=== PATIENT | female | born 1980 | race Caucasian/White ===

== ENCOUNTER 2017-01-25 12:25 | Inpatient (IN) | payer OTHER ==
[~2017-01-25] VITALS: Ht 165.1 cm; Wt 46.3 kg
--- NOTE | 2017-01-25 12:30 | NUR ---
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 PER FAMILY PT WAS SPEAKING AND BEHAVING NORMALLY AND THEN BEGAN TO C/O HEADACHE AND WAS THEN UNABLE TO SPEAK. PT PRESENTS TO ER APHASIC AND WITH FACIAL DROOP TO R SIDE AND FACIAL RAISED TO L SIDE, BUE WEAKNESS NOTED BUT MORE PROMINENT TO R SIDE AND BLE WEAKNESS NOTED WITH MORE TO L SIDE. PT APPEARS TO BE ATTEMPTING TO NOD YES AND NO TO QUESTIONS. PT FAMILY REPORTS PT HAS BEGUN TAKING NEW MEDICATION.
--- NOTE | 2017-01-25 12:35 | NUR ---
DR CARRANZA CALLED TO PT ROOM TO DETERMINE IF CODE BRAIN IS NEEDED FOR PT FOR STROKE LIKE SYMPTOMS VS DYSTONIC REACTION
--- NOTE | 2017-01-25 12:44 | NUR ---
PT EXAMINED BY DR. VALENCIA. PT TRANSPORTED BY MICHELLE TO CT FOR CODE BRAIN.
--- NOTE | 2017-01-25 12:55 | NUR ---
BENADRYL 25MG IV ADMINISTERED PER DR CARRANZA VERBAL ORDER
--- NOTE | 2017-01-25 13:14 | NUR ---
LAB AT BEDSIDE FOR BLOOD DRAW.
--- NOTE | 2017-01-25 13:19 | NUR ---
X-RAY AT BEDSIDE.
[2017-01-25 13:40] LABS: microscopic required? NO
[2017-01-25] MEDS ORDERED: TRAZODONE50 M1 PO (13:45)
[2017-01-25 13:46] LABS: BASOPHIL % 1.1 % (0-2)
[2017-01-25] MEDS ORDERED: IBUPROFEN400 MG PO (13:46)
[2017-01-25 13:47] LABS: PLATELET COUNT 433 x10^3mcL (130-400)
[2017-01-25] MEDS ORDERED: NAPROXEN375 MG PO (13:47)
[2017-01-25] MEDS ORDERED: FLA500 PO (13:48)
[2017-01-25] MEDS ORDERED: LEXAPRO5 M1 PO (13:48)
[2017-01-25 13:49] LABS: CALCIUM 8.4 mg/dL (8.5-10.1); CARBON DIOXIDE 30.7 mmol/L (21-32); CHLORIDE SERUM 106 mmol/L (98-107); CREATININE SERUM 0.5 mg/dL (0.6-1.0); GFR1 > 60 mL/min; GLUCOSE SERUM 82 mg/dL (74-106); POTASSIUM SERUM 3.8 mmol/L (3.5-5.1); SODIUM SERUM 142 mmol/L (136-145)
--- NOTE | 2017-01-25 13:49 | NUR ---
MED REC COMPLETED WITH PT MEDICATION BOTTLES
[2017-01-25 13:53] LABS: ALKALINE PHOSPHATASE 48 U/L (46-116); ALT/SGPT 23 U/L (14-59); AST/SGOT 21 U/L (15-37); BILIRUBIN TOTAL 0.23 mg/dL (0.20-1.00); TOTAL PROTEIN, SERUM 6.6 g/dL (6.4-8.2)
[2017-01-25 13:57] LABS: UA SPECIFIC GRAVITY <1.005 (1.005-1.035)
[2017-01-25 13:58] LABS: urine erythrocyte NEGATIVE (NEGATIVE)
--- NOTE | 2017-01-25 14:02 | NUR ---
PT IN STABLE CONDITION. RESP EVEN AND UNLABORED, RA. VS STABLE. PT NOTED TO HAVE CONTINUED FACIAL DROOP AND RAISE AND NOTED TO BE MAKING A CHEWING MOTION BUT NOT EATING ANYTHING. FAMILY AT BEDSIDE
[2017-01-25 14:07] LABS: ALBUMIN 3.2 g/dL (3.4-5.0)
--- NOTE | 2017-01-25 14:24 | NUR ---
DR POE AT BEDSIDE SPEAKING TO PT
[2017-01-25 14:37] LABS: AMPHETAMINE QUAL UR NONE DETECTED (NEG <=1000)
--- NOTE | 2017-01-25 14:39 | NUR ---
DR CARRANZA MADE AWARE DR POE WILL PROVIDE PT WITH KLONOPIN AFTER PT TRANSFERS TO [facility], DR CARRANZA GIVES VERBAL OK TO HOLD RECENTLY ORDERED ATIVAN
--- NOTE | 2017-01-25 14:50 | NUR ---
REPORT GIVEN TO BRIGIDA CABRERA IN [facility] FOR CONTINUITY OF CARE
--- NOTE | 2017-01-25 14:59 | NUR ---
RESIDENT DR MELO AT BEDSIDE SPEAKING TO PT. ALSO GIVES VERBAL ORDER FOR ADMISSION TO [facility]
--- NOTE | 2017-01-25 15:20 | NUR ---
RECEIVED PT FROM ED VIA [employer], CAME IN DUE TO NUMBNESS, WEAKNESS, UNABLE TO SPEAK AND INVOLUNTARY MOVEMENTS OF HER MOUTH. PT IS AWAKE, ABLE TO ANSWER TO YES OR NO QUESTIONS AND WRITE ON A PIECE OF PAPER. C/O HEADACHE. W/ RIGHT SIDED WEAKNESS, NO FACIAL DROOP NOTED. NOTED PT HAS INVOLUNTARY MOVEMENTS ON HER MOUTH. C/O 10/10 GENERALIZED PAIN. NSR ON THE MONITOR. NO SOB NOTED. SIDE RAILS UPX2. CALL LIGHT ON REACH. PRIMARY NURSE LEVI AT BEDSIDE FOR CONTINUITY OF CARE
[2017-01-25 15:30] VITALS: BP 115/75
[2017-01-25 15:34] VITALS: Ht 165.1 cm; Wt 46.3 kg
[2017-01-25 15:51] LABS: MAGNESIUM 2.1 mg/dL (1.8-2.4); PHOSPHOROUS 4.1 mg/dL (2.5-4.9)
[2017-01-25 15:53] LABS: CHOLESTEROL/HDL RATIO 2.3
[2017-01-25 16:02] LABS: FREE T4 0.93 ng/dL (0.76-1.46); FREE THYROXINE INDEX 2.3 ug/dL (1.4-4.5); T3 TOTAL 0.96 ng/mL; T4(THYROXINE) 6.7 ug/dL (4.7-13.3)
--- NOTE | 2017-01-25 16:36 | NUR ---
RESUMED CARE OF THIS PT. PT IN NO ACUTE RESP. DISTRESS. ABLE TO WRITE NEEDS ON A PAPER. REPORTED RT SIDED HAEADACHE AT THIS TIME. WILL MEDICATE INDICATED. VS WNL. IVF INITIATED AND INFUSING WELL, SITE CLEAR. CALL LIGHT WITHIN REACH. WILL CONT. WITH PLAN OF CARE.
[2017-01-25 16:50] VITALS: BP 107/60
--- NOTE | 2017-01-25 18:42 | NUR ---
PT IS MORE AWAKE AND VERBALLY RESPONSIVE, STATED " IM HUNGRY". NO RESP. DISTRESS NOTED. NO C/O PAIN AT THIS TIME. IVF INFUSING WELL AND SITE CLEAR. CALL LIGHT WITHIN REACH. WILL BE ENDORSED TO INCOMING SHIFT.
--- NOTE | 2017-01-25 19:00 | NUR ---
AOX4. TELE # 13, NSR. SPEECH IS CLEAR. STRENGTH IS EQUAL BILATERAL. LUNGS CLEAR AND UNLABORED ON RA. RADIAL AND PEDAL PULSES PALPABLE, NO EDEMA. SKIN INTACT. DENIES PAIN. NS @ 100 ML/HR INFUSING TO RIGHT AC, NO REDNESS OR SWELLING. BED IN LOW POSITION, CALL LIGHT IN REACH. INSTRUCTED TO CALL FOR ASSISTANCE.
--- NOTE | 2017-01-25 20:05 | NUR ---
BP: 87/53, MAP: 60 DR. SALOMON NOTIFIED, NO ORDERS GIVEN.
--- NOTE | 2017-01-25 20:12 | NUR ---
RECHECK BY NURSE: BP: 97/52, MAP: 67
[2017-01-25 21:45] VITALS: BP 97/52
--- NOTE | 2017-01-26 01:25 | NUR ---
RESTING WITH EYES CLOSED, AWAKENS EASILY TO VERBAL STIMULI. BREATHING EVEN AND UNLABORED. NO ACUTE DISTRESS NOTED. WILL CONTINUE TO MONITOR.
--- NOTE | 2017-01-26 06:25 | NUR ---
NO ACUTE CHANGES DURING SHIFT. WILL ENDORSE TO ONCOMING RN.
[2017-01-26 06:30] VITALS: BP 90/62
[2017-01-26 06:40] LABS: PLATELET COUNT 391 x10^3mcL (130-400)
[2017-01-26 06:44] LABS: BASOPHIL % 2.4 % (0-2)
[2017-01-26 06:46] LABS: CALCIUM 7.7 mg/dL (8.5-10.1); CARBON DIOXIDE 29.9 mmol/L (21-32); CHLORIDE SERUM 107 mmol/L (98-107); CREATININE SERUM 0.6 mg/dL (0.6-1.0); GFR1 > 60 mL/min; GLUCOSE SERUM 103 mg/dL (74-106); PHOSPHOROUS 3.2 mg/dL (2.5-4.9); POTASSIUM SERUM 3.3 mmol/L (3.5-5.1); SODIUM SERUM 140 mmol/L (136-145)
--- NOTE | 2017-01-26 07:22 | NUR ---
PT RECEIVED DURING CHANGE OF SHIFT, ASLEEP BUT AROUSABLE, TELE 13, NSR, PULSES PRESENT, LUNGS CTA ON RA, BREATHING EVEN AND UNLABORED, BOWEL SOUNDS ACTIVE, ABLE TO VOID, RIGHT SIDED WEAKNESS AND UNSTEADY GAIT REPORTED, K-PAD, SKIN WARM DRY INTACT, NO INDICATION OF PAIN, IV TO RAC INFUSING NS AT 120ML/HR, IV WNL, CALL LIGHT WITHIN REACH, WILL CONTINUE TO MONITOR.
--- NOTE | 2017-01-26 07:57 | NUR ---
DR. POE AND RESIDENTS MAKING ROUNDS, PLAN OF CARE DISCUSSED, CONDITION CAUSED EXPLAINED BY DR. POE AND NEED TO OBSERVE PT UNTIL TOMORROW.
--- NOTE | 2017-01-26 08:27 | NUR ---
PT DENIES SOB, STATES PAIN IS TOLERABLE, STATES SHE FEELS "TIGHTNESS" IN RIGHT JAW AND RIGHT ARM, IV SALINE LOCKED PER DR. POE, PT GIVEN TOWELS AND WASCLOTHS TO SHOWER WITH, CALL LIGHT WITHIN REACH, WILL CONTINUE TO MONITOR.
--- NOTE | 2017-01-26 10:16 | NUR ---
PT DENIES SOB, STATES MEDICATION INEFFECTIVE, FAMILY AT BEDSIDE, CALL LIGHT WTIHIN REACH, WILL CONTINUE TO MONITOR.
--- NOTE | 2017-01-26 10:36 | NUR ---
Initial Nutrition Assessment Dx: Tardive Dyskinesia PMHx: Bipolar disorder, methamphetamine abuse, alcohol abuse, tobacco abuse disorder PSHx: Hernia repair (abd) Labs: K 3.3 L, H/H 7.1/22 L; (01/25) ALB 3.2 L, A1C 5.5 Meds: Ativan, Colace, NS IV, zofran Current Diet Order: Full Liquid, Boost Vanilla PO Intakes: None recorded yet due to diet just advanced Ht: 65", 5' 5". Wt: 102 lb, 46 kg. BMI: 17 kg/m2 (Underweight) IBW: 125 lb, 57 kg. %IBW: 81%. UBW: 108 lb, 49 kg (01/22/17); Pt reported unable to recall weight 6 months ago due to being on drugs Age: 37 Y/O F Food Allergies: None Skin: Intact. Bebo 19. Edema: None GI: Active bowel sounds. Last BM 01/25. Pt found with disorder of ANS with tardive dyskinesis, r/o CVA, pending Swallow Evaluation per Speech Therapist per doctor's notes. Noted WIRE STITCHER evaluation was cancelled later at 0927. Pt was seen resting in bed, family at bedside during RD visit. Pt seen munching on ice chips, stated that she is chewing/swallowing fine at this time, just having a headache, and starving, wants to eat. Spoke with RN, stated that doctor found no stroke/CVA, cancelled swallow evaluation, admitted due to rejection of new medication with L sided weakness, but doing better today, diet was just advanced to Full Liquid with Boost oral supplement. Problem with: N: None. V: None. D: None. C: None. Problems with: Chewing: None. Swallowing: None. Recent Weight Change: -6 lb; % Weight Change: 5.5% weight loss within 4 days - Likely fluid shifts Vitamin/Supplement use: None Diet at Home: Regular; Pt reports good PO intakes prior to admission, eats a lot Physical Activity: Walks Education: RD educated pt on diet progression, encouraged adequate PO intakes, and to eat slowly when diet advances. Pt and family verbalizes understanding. Estimated Nutritional Needs Based CBW 102 lb, 46 kg. Energy: 6282-3537 kcal/day (30-35 kcal/kg for Maintenance, Gradual Wt Gain) Protein: 46-55 gm/day (1-1.2 gm/kg for Maintenance, Gradual Wt Gain) Fluids: 1380 ml/day (30 ml/kg for Maintenance) or per doctor Nutrition Diagnosis Underweight related to medications, drug abuse per pt as evidenced by 81% of IBW, BMI 17 kg/m2 Intervention 1. Continue Full Liquid diet per doctor. 2. Recommend Boost Plus TID (1080 kcal, 42 gm protein) to aid in weight maintenance and PO intakes. 3. Consider advance as tolerated to Mechanical Soft, Chopped diet, Boost Plus TID if/when medically appropriate. 4. Recommend Theragran daily. Monitor/Evaluate Goal: PO intakes to meet >75% of estimated needs with tolerance; WIRE STITCHER recommendations Monitor: PO intakes, tolerance to diet, labs, skin integrity, GI function, weights F/U in 3-5 days as MODERATE risk (01/29-01/31)
--- NOTE | 2017-01-26 11:13 | NUR ---
PT C/O PAIN 10/31, WILL MEDICATE PER EMAR, DENIES SOB, BREAKFAST TRAY AT BEDSIDE, CALL LIGHT WITHIN REACH, WILL CONTINUE TO MONITOR.
--- NOTE | 2017-01-26 11:52 | NUR ---
SAMEER GIVEN IM PER DR. CABELLO.
--- NOTE | 2017-01-26 12:07 | NUR ---
ECHO IN PROGRESS, FAMILY STATES MEDICATION EFFECTIVE AND PT STOPPED "MAKING CLICKING NOISES AND MOVING NECK", NO INDICATION OF PAIN, BREATHING EVEN AND UNLABORED, CALL LIGHT WITHIN REACH, WILL CONTINUE TO MONITOR.
--- NOTE | 2017-01-26 13:11 | NUR ---
PT ASLEEP BUT AROUSABLE, NO INDICATION OF PAIN, BREATHING EVEN AND UNLABORED, CALL LIGHT WITHIN REACH, WILL CONTINUE TO MONITOR.
[2017-01-26 13:50] VITALS: BP 90/48
--- NOTE | 2017-01-26 14:07 | NUR ---
PT ASLEEP BUT AROUSABLE, DENIES SOB, STATES PAIN TOLERABLE, IV POTASSIUM EXPLAINED, IV POTASSIUM INFUSING, CALL LIGHT WITHIN REACH, WILL CONTINUE TO MONITOR.
--- NOTE | 2017-01-26 15:15 | NUR ---
PT ASLEEP BUT AROUSABLE, NO INDICATION OF PAIN, BREATHING EVEN AND UNLABORED, DR. CABELLO AT BEDSIDE SPEAKING TO FAMILY AND ADDRESSING CONCERNS, FAMILY AT BEDSIDE, CALL LIGHT WITHIN REACH, WILL CONTINUE TO MONITOR.
--- NOTE | 2017-01-26 16:42 | NUR ---
PT DENIES SOB, ASSISTED TO RESTROOM BY RN AND ORTHOPAEDIC GENERAL, BP LOW, STATES SHE FEELS LIGHT HEADED, PT STATES VISION IS "BLURRY", SYMPTOMS REPORTED TO DR. CABELLO, INSTRUCTED TO RETAKE BP AFTER PT FINISHED USING RESTROOM, CALL LIGHT WITHIN REACH, FAMILY AT BEDSIDE, WILL CONTINUE TO MONITOR.
[2017-01-26 16:53] VITALS: BP 81/42
--- NOTE | 2017-01-26 17:13 | NUR ---
DR. CABELLO NOTIFIED OF BP AFTER RESTROOM USE, DR. CABELLO STATED POSSIBLY DC'ING FRED, CALL LIGHT WITHIN REACH, FAMILY AT BEDSIDE, WILL CONTINUE TO MONITOR.
--- NOTE | 2017-01-26 18:17 | NUR ---
PT DENIES SOB, PT STATES VISION IS IMPROVING, DAUGHTER AT BEDSIDE, CALL LIGHT WITHIN REACH, WILL ENDORSE PT TO NEXT SHIFT.
--- NOTE | 2017-01-26 19:51 | NUR ---
PT C/O TIGHTNESS OF THE LEFT SIDE AND UNABLE TO TALK WHISPERING ONLY TO HER FAMILY , K-PAD TO LEFT OF HER FACE NOTED, WILL MEDICATE PT WITH CONGENTING ORDERED IM .
[2017-01-26 20:52] VITALS: BP 90/43
--- NOTE | 2017-01-27 00:18 | NUR ---
PT'S IN BED WITH EYES CLOSED , TELE NSR PIV INTACT INFUSING WELL , WILL CON'T TO MONITOR AND ASSIST PT WITH CARE .
[2017-01-27 06:04] VITALS: BP 86/51
--- NOTE | 2017-01-27 06:21 | NUR ---
PT C/O SEVERE RIGHT SHOULDER PAIN /, TORADOL GIVEN IVP ORDERED , PIV INTACT INFUSING WELL , BP 187/74 MAP 62, PT'S ASYMPTOMATIC AT THE MOMENT , DR CABELLO IN THE ROOM AWARE OF LOW BP .
[2017-01-27 07:06] LABS: BASOPHIL % 0.6 % (0-2); PLATELET COUNT 356 x10^3mcL (130-400); RED CELL DISTRIBUTION WIDTH 14.3 % (11.5-14.5)
[2017-01-27 07:20] LABS: CALCIUM 8.1 mg/dL (8.5-10.1); CARBON DIOXIDE 28.7 mmol/L (21-32); CHLORIDE SERUM 105 mmol/L (98-107); CREATININE SERUM 0.6 mg/dL (0.6-1.0); GFR1 > 60 mL/min; GLUCOSE SERUM 85 mg/dL (74-106); MAGNESIUM 1.9 mg/dL (1.8-2.4); PHOSPHOROUS 4.7 mg/dL (2.5-4.9); SODIUM SERUM 138 mmol/L (136-145)
--- NOTE | 2017-01-27 07:50 | NUR ---
RC'D PT RESTING IN BED WIHT NO APPARENT SIGNS OF DISTRESS. A/A/O/X4, SPEECH CLEAR AND APPROPRIATE. ON TELE 13 WITH NSR. DENIES CHEST PAIN/PRESSURE. PALP PULSES, NO EDEMA NOTED. RESPIRATIONS EQUAL AND UNLABORED BILAT. LUNGS CLEAR TO AUSCULTATION. ON RA WITH 96% SAT. DENIES SOB. ABDOMEN SOFT AND NONTENDER. ACTIVE BS. DENIES N/V. VOIDS FREELY, DENIES BURNING. GENERALIZED WEAKNESS, SLOW GAIT NOTED WITH PARTIAL ASSISTANCE. SKIN W/D/I. DENIES PAIN AT THIS TIME. IV RUNNING NS AT 120ML/HR, WNL. PT IS CALM AND COOPERATIVE. BED IN LOW POSITION. EDUCATED ON USING CALL LIGHT WHEN NEEDING ASSISTANCE OUT OF BED. CALL LIGHT IN REACH. WILL CONTINUE TO MONITOR.
[2017-01-27 08:36] VITALS: BP 84/46
[2017-01-27] MEDS ORDERED: BEN50 PO (11:38)
[2017-01-27] MEDS ORDERED: KLO0.5 PO (11:39)
[2017-01-27] MEDS ORDERED: COG1 PO (11:40)
[2017-01-27 12:39] VITALS: BP 77/41
--- NOTE | 2017-01-27 13:50 | NUR ---
RECHECKED PT'S BP AFTER 500 ML BOLUS. BP 86/44 (56), HR 85. DR. CABELLO NOTIFIED VIA [place] AND MADE AWARE. AWAITING NEW ORDERS. WILL CONTINUE TO MONITOR.
--- NOTE | 2017-01-27 14:44 | NUR ---
PHYSICAL THERAPY DAILY NOTES CO-SIGN All documentation done by the Peanut Farmer for 01/27/17 has been reviewed. I agree with the documentation. I CONCUR W/MAMMAL KEEPER NOTE; TO MONITOR VS DURING TX, CONT W/CURRENT TX PLAN Reviewed/Co-Signed by: Anan Lynch V PT Documentation Done by: DERRELL WALL MAMMAL KEEPER
--- NOTE | 2017-01-27 15:25 | NUR ---
PT COMPLAINING OF 8/10 HEAD PAIN. MEDICATED WITH TYLENOL PER MED REC. CALL LIGHT IN REACH. WILL CONTINUE TO MONITOR.
[2017-01-27] MEDS ORDERED: BENADRYL ALLERG25 M1 PO (16:04)
[2017-01-27 16:57] VITALS: BP 94/46
[2017-01-27 17:27] VITALS: BP 94/46
[2017-01-27] MEDS ORDERED: COL100 PO (18:28)
[2017-01-27] MEDS ORDERED: OSCD PO (18:28)
[2017-01-27] MEDS ORDERED: FERROUS SULFAT325 M2 PO (18:28)
--- NOTE | 2017-01-27 18:58 | NUR ---
PT PROVIDED WITH DC HOME INSTRUCTION. GIVEN MEDICATION EDUCATION. MADE AWARE PRECSCRIPTIONS HAVE BEEN SENT TO PT'S SELECTED PHARMACY. MADE AWARE OF FOLLOW UP APPT WITH PCP. INSTRUCTED ON IMPORTANCE OF FOLLOWING MEDICATIONS ORDERED. MADE AWARE OF WORSENING SIGNS AND SYMPTOMS TO RETURN TO ED OR PRESENT TO PCP. PT AND MOTHER VERBALIZED UNDERSTANDING OF INSTRUCTIONS. TELE AND IV DC'D, CAQTHETER INTACT. PT TRANSPORTED VIA WC TO THE LOBBY WITH ALL PERSONAL BELONGINGS IN HAND ACCOMPANIED BY MACHINERY ENGINEER AND FAMILY FREE OF ANY APPARENT DISTRESS.
== END 2017-01-27 19:01 | disposition home or self-care (01) | DRG 58 ==
LOC: ED 12:25 → DU 14:27
PROVIDERS: Emergency Medicine Emergency Medical Services; ADMIT Family Medicine
DX: G24.01 Drug induced subacute dyskinesia (principal); E44.0 Moderate protein-calorie malnutrition; F31.64 Bipolar disorder, current episode mixed, severe, with psychotic features; M41.34 Thoracogenic scoliosis, thoracic region; D64.9 Anemia, unspecified; F10.20 Alcohol dependence, uncomplicated; F15.10 Other stimulant abuse, uncomplicated; A59.9 Trichomoniasis, unspecified; R20.0 Anesthesia of skin; T43.225A Adverse effect of selective serotonin reuptake inhibitors, initial encounter; G89.29 Other chronic pain; F17.210 Nicotine dependence, cigarettes, uncomplicated; Z68.20 Body mass index [BMI] 20.0-20.9, adult; Y92.009 Unspecified place in unspecified non-institutional (private) residence as the place of occurrence of the external cause
CPT/HCPCS: 83880; 84439; 97530-GP; G0480; J0515; J1200; J1885; J3480; J7030; J7040; Q0092; Q0163

== ENCOUNTER 2017-01-29 12:48 | Inpatient (IN) | payer OTHER ==
[~2017-01-29] VITALS: Ht 165.1 cm; Wt 49.7 kg
[~2017-01-29 12:48] MED LIST: BEN50 PO; BENADRYL ALLERG25 M1 PO; COG1 PO; COL100 PO; FERROUS SULFAT325 M2 PO; FLA500 PO; IBUPROFEN400 MG PO; KLO0.5 PO; LEXAPRO5 M1 PO; NAPROXEN375 MG PO; OSCD PO; TRAZODONE50 M1 PO
[2017-01-29 13:46] LABS: BASOPHIL % 1.1 % (0-2); RED CELL DISTRIBUTION WIDTH 14.5 % (11.5-14.5)
[2017-01-29 13:48] LABS: PLATELET COUNT 407 x10^3mcL (130-400)
[2017-01-29 13:53] LABS: CALCIUM 8.4 mg/dL (8.5-10.1); CARBON DIOXIDE 31.3 mmol/L (21-32); CHLORIDE SERUM 105 mmol/L (98-107); CREATININE SERUM 0.6 mg/dL (0.6-1.0); GFR1 > 60 mL/min; GLUCOSE SERUM 89 mg/dL (74-106); POTASSIUM SERUM 3.8 mmol/L (3.5-5.1); SODIUM SERUM 140 mmol/L (136-145)
[2017-01-29 14:08] LABS: ALKALINE PHOSPHATASE 40 U/L (46-116); ALT/SGPT 43 U/L (14-59); AST/SGOT 48 U/L (15-37); BILIRUBIN TOTAL 0.16 mg/dL (0.20-1.00); TOTAL PROTEIN, SERUM 6.2 g/dL (6.4-8.2)
[2017-01-29 14:29] LABS: microscopic required? NO
[2017-01-29 14:40] LABS: urine erythrocyte NEGATIVE (NEGATIVE)
[2017-01-29] MEDS ORDERED: NICOTINE T14 MG/24 H TOP (15:17)
[2017-01-29] MEDS ORDERED: MONISTAT 31 EACH VG (15:19)
[2017-01-29 15:54] LABS: T3 TOTAL 0.96 ng/mL
[2017-01-29 16:19] LABS: FREE T4 0.82 ng/dL (0.76-1.46); FREE THYROXINE INDEX 2.5 ug/dL (1.4-4.5)
[2017-01-29 16:25] VITALS: BP 95/53
[2017-01-29 16:31] VITALS: BP 90/53; BP 95/53
[2017-01-29 16:35] VITALS: Ht 165.1 cm; Wt 49.7 kg
[2017-01-29 16:37] LABS: AMPHETAMINE QUAL UR NONE DETECTED (NEG <=1000)
[2017-01-29 21:03] VITALS: BP 95/52
[2017-01-30 07:01] LABS: BASOPHIL % 1.7 % (0-2); PLATELET COUNT 375 x10^3mcL (130-400); RED CELL DISTRIBUTION WIDTH 14.1 % (11.5-14.5)
[2017-01-30 09:05] VITALS: BP 88/41
[2017-01-30 12:18] VITALS: BP 88/50
[2017-01-30 16:35] VITALS: BP 97/54
[2017-01-30 21:55] VITALS: BP 96/51
[2017-01-31 05:54] VITALS: BP 89/43
[2017-01-31 06:01] LABS: BASOPHIL % 0.5 % (0-2); PLATELET COUNT 381 x10^3mcL (130-400)
[2017-01-31 06:27] LABS: CALCIUM 8.1 mg/dL (8.5-10.1); CARBON DIOXIDE 28.5 mmol/L (21-32); CHLORIDE SERUM 107 mmol/L (98-107); CREATININE SERUM 0.5 mg/dL (0.6-1.0); GFR1 > 60 mL/min; GLUCOSE SERUM 81 mg/dL (74-106); POTASSIUM SERUM 3.7 mmol/L (3.5-5.1); SODIUM SERUM 139 mmol/L (136-145)
[2017-01-31 06:43] LABS: RED CELL DISTRIBUTION WIDTH 14.7 % (11.5-14.5)
[2017-01-31 10:00] VITALS: BP 90/43
[2017-01-31] MEDS ORDERED: SEROQUEL100 MG PO (13:22)
[2017-01-31] MEDS ORDERED: SEROQUEL200 MG PO (13:23)
[2017-01-31] MEDS ORDERED: SEROQUEL300 MG PO (13:24)
[2017-01-31 13:56] VITALS: BP 98/50
[2017-01-31] MEDS ORDERED: FLE10 PO (14:03)
[2017-01-31] MEDS ORDERED: ZOF4 PO (14:59)
== END 2017-01-31 15:30 | disposition home or self-care (01) | DRG 663 ==
LOC: ED 12:48 → DU 14:46
PROVIDERS: Emergency Medicine; Family Medicine; ADMIT Family Medicine
DX: D64.9 Anemia, unspecified (principal); E44.0 Moderate protein-calorie malnutrition; T43.221D Poisoning by selective serotonin reuptake inhibitors, accidental (unintentional), subsequent encounter; G24.01 Drug induced subacute dyskinesia; F17.200 Nicotine dependence, unspecified, uncomplicated; F31.9 Bipolar disorder, unspecified; F15.10 Other stimulant abuse, uncomplicated; F10.10 Alcohol abuse, uncomplicated; M41.9 Scoliosis, unspecified; Z68.1 Body mass index [BMI] 19.9 or less, adult
CPT/HCPCS: 83880; 84439; J1885; J2405; J2916; J7030; Q0092; Q0163

== ENCOUNTER 2017-02-09 09:39 | Emergency (ER) | payer OTHER ==
[~2017-02-09 09:39] MED LIST changes: +FLE10 PO; +MONISTAT 31 EACH VG; +NICOTINE T14 MG/24 H TOP; +SEROQUEL100 MG PO; +SEROQUEL200 MG PO; +SEROQUEL300 MG PO; +ZOF4 PO
[2017-02-09 12:00] VITALS: BP 98/56
== END 2017-02-09 12:21 | disposition home or self-care (01) ==
LOC: ED 09:39
DX: G24.9 Dystonia, unspecified (principal); Z79.899 Other long term (current) drug therapy
CPT/HCPCS: J1200; J1885; Q0162

== ENCOUNTER 2018-02-17 17:43 | Emergency (ER) | payer OTHER ==
[~2018-02-17] VITALS: Ht 152.4 cm; Wt 45.8 kg
[2018-02-17 18:19] VITALS: Ht 152.4 cm; Wt 45.8 kg
[2018-02-17 21:03] LABS: BASOPHIL % 0.8 % (0-2); PLATELET COUNT 231 x10^3mcL (130-400); RED CELL DISTRIBUTION WIDTH 13.1 % (11.5-14.5)
[2018-02-17 21:11] LABS: CALCIUM 8.7 mg/dL (8.5-10.1); CARBON DIOXIDE 27.3 mmol/L (21-32); CHLORIDE SERUM 108 mmol/L (98-107); CREATININE SERUM 0.7 mg/dL (0.6-1.0); GFR1 > 60 mL/min; GLUCOSE SERUM 89 mg/dL (74-106); POTASSIUM SERUM 4.1 mmol/L (3.5-5.1); SODIUM SERUM 142 mmol/L (136-145)
[2018-02-17 21:21] LABS: ALBUMIN 3.4 g/dL (3.4-5.0); ALKALINE PHOSPHATASE 40 U/L (46-116); ALT/SGPT 14 U/L (14-59); AST/SGOT 10 U/L (15-37); BILIRUBIN TOTAL 0.17 mg/dL (0.20-1.00); TOTAL PROTEIN, SERUM 7.2 g/dL (6.4-8.2)
[2018-02-17 21:25] LABS: microscopic required? NO
[2018-02-17 21:30] LABS: UA SPECIFIC GRAVITY >=1.030 (1.005-1.035); urine erythrocyte NEGATIVE (NEGATIVE)
[2018-02-17 23:27] VITALS: BP 107/72
== END 2018-02-17 23:27 | disposition home or self-care (01) ==
LOC: ED 17:43
PROVIDERS: Emergency Medicine
DX: K59.00 Constipation, unspecified (principal); E03.9 Hypothyroidism, unspecified; F31.9 Bipolar disorder, unspecified; Z85.028 Personal history of other malignant neoplasm of stomach
CPT/HCPCS: J1885; J7030

== ENCOUNTER 2018-03-15 11:31 | Emergency (ER) | payer OTHER ==
[~2018-03-15] VITALS: Ht 152.4 cm; Wt 46.3 kg
[2018-03-15 11:38] VITALS: Ht 152.4 cm; Wt 46.3 kg
[2018-03-15 12:22] LABS: CALCIUM 8.3 mg/dL (8.5-10.1); CARBON DIOXIDE 29.6 mmol/L (21-32); CHLORIDE SERUM 106 mmol/L (98-107); CREATININE SERUM 0.7 mg/dL (0.6-1.0); GFR1 > 60 mL/min; GLUCOSE SERUM 81 mg/dL (74-106); POTASSIUM SERUM 4.1 mmol/L (3.5-5.1); SODIUM SERUM 138 mmol/L (136-145)
[2018-03-15 12:26] LABS: ALBUMIN 3.4 g/dL (3.4-5.0); ALKALINE PHOSPHATASE 33 U/L (46-116); ALT/SGPT 15 U/L (14-59); AST/SGOT 11 U/L (15-37); BILIRUBIN TOTAL 0.4 mg/dL (0.20-1.00); MAGNESIUM 2.1 mg/dL (1.8-2.4); TOTAL PROTEIN, SERUM 6.8 g/dL (6.4-8.2)
[2018-03-15 12:30] LABS: BASOPHIL % 0.5 % (0-2); PLATELET COUNT 218 x10^3mcL (130-400); RED CELL DISTRIBUTION WIDTH 13.4 % (11.5-14.5)
[2018-03-15 14:06] VITALS: BP 99/65
== END 2018-03-15 14:32 | disposition home or self-care (01) ==
LOC: ED 11:31
PROVIDERS: Emergency Medicine
DX: G24.01 Drug induced subacute dyskinesia (principal); E03.9 Hypothyroidism, unspecified; F31.9 Bipolar disorder, unspecified; Z88.8 Allergy status to other drugs, medicaments and biological substances
CPT/HCPCS: J2060

== ENCOUNTER 2018-06-08 12:33 | Emergency (ER) | payer OTHER ==
[~2018-06-08] VITALS: Ht 152.4 cm; Wt 46.4 kg
[2018-06-08 12:47] VITALS: Ht 152.4 cm; Wt 46.4 kg
[2018-06-08 13:52] VITALS: BP 103/68
== END 2018-06-08 13:52 | disposition home or self-care (01) ==
LOC: ED 12:33
DX: M79.10 Myalgia, unspecified site (principal); H92.02 Otalgia, left ear; R07.89 Other chest pain; F31.9 Bipolar disorder, unspecified; E03.9 Hypothyroidism, unspecified; Z88.8 Allergy status to other drugs, medicaments and biological substances
CPT/HCPCS: 83880

== ENCOUNTER 2019-01-20 10:07 | Emergency (ER) | payer OTHER ==
[~2019-01-20] VITALS: Ht 157.5 cm; Wt 48.1 kg
[2019-01-20 10:27] VITALS: Ht 157.5 cm; Wt 48.1 kg
[2019-01-20 12:16] VITALS: BP 104/73
[2019-01-21 06:06] LABS: RAPID PLASMA REAGIN Reactive (Non Reactive)
== END 2019-01-20 12:16 | disposition home or self-care (01) ==
LOC: ED 10:07
PROVIDERS: Emergency Medicine
DX: R21 Rash and other nonspecific skin eruption (principal); E03.9 Hypothyroidism, unspecified; F41.9 Anxiety disorder, unspecified; Z88.8 Allergy status to other drugs, medicaments and biological substances; Z85.028 Personal history of other malignant neoplasm of stomach
CPT/HCPCS: 36415

== ENCOUNTER 2019-01-29 20:27 | Emergency (ER) | payer OTHER ==
[~2019-01-29] VITALS: Ht 152.4 cm; Wt 47.2 kg
[2019-01-29 20:34] VITALS: BP 113/63; Ht 152.4 cm; Wt 47.2 kg
== END 2019-01-29 22:18 | disposition home or self-care (01) ==
LOC: ED 20:27
DX: L25.9 Unspecified contact dermatitis, unspecified cause (principal); E03.9 Hypothyroidism, unspecified; F31.9 Bipolar disorder, unspecified; F41.9 Anxiety disorder, unspecified; F17.210 Nicotine dependence, cigarettes, uncomplicated; Z85.028 Personal history of other malignant neoplasm of stomach; Z88.8 Allergy status to other drugs, medicaments and biological substances